=== PATIENT | female | born 1940 | race Caucasian/White ===

== ENCOUNTER → 2018-11-24 | Outpatient (REF) | payer MEDICARE, BC | END | disposition home or self-care (01) | LOC: MAMMO 09:48 | PROVIDERS: ATTEND Internal Medicine | DX: Z12.31 Encounter for screening mammogram for malignant neoplasm of breast (principal) ==

== ENCOUNTER 2022-06-19 10:26 | Emergency (ER) | payer MEDICARE, BC ==
[~2022-06-19] VITALS: Ht 157.5 cm; Wt 62.7 kg
[2022-06-19] VITALS (17 sets, daily range): BP systolic 138–181; BP diastolic 53–77
[2022-06-19] MEDS ORDERED: ELIQUIS5 MG PO (10:42)
[2022-06-19 12:36] LABS: HEMATOCRIT 35.9 % (37.0-47.0); HEMOGLOBIN 12.2 g/dl (12.0-16.0); IMMATURE GRANULOCYTES 0.7 % (0.0-5.0); MEAN CELL VOLUME 86.7 fL CALC (80.0-100.0); MEAN CORPUSCULAR HGB 29.5 pG CALC (26.0-32.0); NEUT# 11.54 thou/uL (2.00-7.15); RED BLOOD COUNT 4.14 mill/uL (4.20-5.60); RED CELL DISTRI WIDTH 13.1 % (11.5-15.5)
[2022-06-19 12:52] LABS: ALBUMIN 4.2 g/dL (3.2-5.0); ALKALINE PHOSPHATASE 66 u/l (38-126); BUN 15 mg/dL (8-23); BUN/CREATININE RATIO 16 (12-20 (CALC)); CHLORIDE 100 mmol/l (95-108); CREATININE 0.9 mg/dL (0.5-1.0); GFR FOR AFR.AMER. > 60 ML/MIN (>=60 (CALC)); GFR OTHER RACES 60 ML/MIN (>=60 (CALC)); POTASSIUM 4.1 mmol/l (3.5-5.1); SGOT/AST 33 u/l (9-36); TOTAL PROTEIN 6.8 g/dL (6.3-8.2)
[2022-06-19 12:58] LABS: ANION GAP 14 (6-22 (CALC)); BILIRUBIN, TOTAL 0.4 mg/dL (0.0-1.4); CARBON DIOXIDE 22 mmol/l (22-30); SODIUM 132 mmol/l (137-146)
[2022-06-19] MEDS ORDERED: MOTRIN400 MG/TAB PO ×2 (13:56→14:13)
[2022-06-19] MEDS ORDERED: HYDROCO/APAP1 TA9 PO ×2 (13:56→14:13)
[2022-06-19] MEDS ORDERED: WALKER/ADULT/FOLDING XX (13:58)
== END 2022-06-19 14:34 | disposition home or self-care (01) ==
LOC: ED 10:26
PROVIDERS: Family Medicine
DX: S32.592A Other specified fracture of left pubis, initial encounter for closed fracture (principal); I10 Essential (primary) hypertension; I48.91 Unspecified atrial fibrillation; F32.A Depression, unspecified; F41.9 Anxiety disorder, unspecified; F17.200 Nicotine dependence, unspecified, uncomplicated; W01.0XXA Fall on same level from slipping, tripping and stumbling without subsequent striking against object, initial encounter; Y93.E5 Activity, floor mopping and cleaning; Y92.008 Other place in unspecified non-institutional (private) residence as the place of occurrence of the external cause